=== PATIENT | female | born 1945 | race American Indian/Alaskan Native ===

== ENCOUNTER 2016-09-15 08:00 | Day surgery (SDC) | payer MEDICAID ==
[2016-09-13 06:48] VITALS: BMI 31.8
[2016-09-15 08:48] LABS: INR 1.06 (0.93-1.08); PARTIAL THROMBOPLASTIN TIME 28.4 Seconds (23.7-30.8)
[2016-09-15 08:50] LABS: ADD MANUAL DIFF? NO
[2016-09-15] MEDS ORDERED: Iohexol 350mgl/ml 50 ML ONE (09:01)
[2016-09-15] MEDS ORDERED: Iohexol 350 MG/100 ML VIAL ONE (09:01)
[2016-09-15] MEDS ORDERED: Lidocaine 2% Inj (20ml) ONE (09:01)
[2016-09-15 09:05] LABS: CALCIUM 9.8 mg/dL (8.4-10.5); POTASSIUM 4.3 mmol/L (3.6-5.0)
[2016-09-15 09:11] LABS: BASO # 0.02 K/mm3 (0.0-2.0); BASO % 0.3 % (0.0-3.0); EOS # 0.1 (0.0-0.7); EOS % 1.7 % (1.5-5.0); GRAN # 3.36 (1.4-6.5); GRAN % 51.2 % (50.0-68.0); HEMATOCRIT 37.1 % (36.0-48.0); LYMPH # 2.6 (1.2-3.4); LYMPH % 39.9 % (22.0-35.0); MEAN CELL VOLUME 93.2 fL (80.0-105.0); MEAN CORPUSCULAR HEMOGLOBIN 31.2 pg (25.0-35.0); MEAN CORPUSCULAR HGB CONC 33.4 g/dl (31.0-37.0); MEAN PLATELET VOLUME 9.7 fl (7.0-11.0); MONO # 0.5 (0.1-0.6); MONO % 6.9 % (1.0-6.0); PLATELET COUNT 226 10^3/uL (120.0-450.0); RED CELL DISTRIBUTION WIDTH 13.9 % (11.5-14.5); WHITE BLOOD COUNT 6.6 10^3/ul (4.5-11.0)
[2016-09-15] MEDS ORDERED: Midazolam 2 MG/2 ML VIAL ONE (09:50)
[2016-09-15] MEDS ORDERED: Sodium Chloride 0.45% 1,000 ML IV SCH (10:30)
[2016-09-15 10:50] VITALS: TEMP 97.8
[2016-09-15 11:52] VITALS: RESP 18
[2016-09-15 12:34] VITALS: BP 140/73; O2SAT 98
[2016-09-15 13:26] VITALS: PULSE 57
--- NOTE | 2016-09-19 13:48 | CARD ---
APPROVED REPORT Procedure(s) performed: Left Heart Catheterization Complete Heart Catheterization Left Ventriculogram HISTORY dyslipidemia . INDICATION The indication(s) include : positive stress test, stable angina (Silent [place](no time period)), chest pain. CASE TECHNIQUE The patient was brought electively to the Cardiac Catheterization Laboratory in a fasting state and was prepped and draped in a sterile manner. The was infiltrated with 2% Lidocaine subcutaneous without difficulty. Coronary angiography was performed using coronary diagnostic catheters. The left coronary system was accessed and visualized with a Diagnostic catheter. The right coronary system was accessed and visualized with a Diagnostic catheter. The left ventricle was accessed and visualized with a Diagnostic catheter. Left ventricular/Aortic Valve gradient assessed on pullback. Left ventriculogram was performed in SONG projection. Closure device was deployed with a 6 Fr Angio-Seal without any complications. Vessel Analysis The patient's coronary anatomy is right dominant. The left main coronary artery is a medium size vessel . There is a 70% stenosis in the distal segment. The left main bifurcates to the left anterior descending and circumflex. The left anterior descending artery is a medium size vessel . There is a 30% stenosis in the mid segment. The circumflex artery is a medium size vessel . There is a 20% stenosis in the mid segment. The right coronary artery is a medium size vessel . There is a 50% stenosis in the mid segment. Left Ventricle The left ventricle is normal in size with normal contractility. The left ventricular ejection fraction is estimated to be 60%. Conclusion Left main CAD. Normal left ventricular function. Recommendations Aggressive Medical Therapy Medical Therapy CABG evaluation.
== END 2016-09-15 14:50 | disposition home or self-care (01) ==
LOC: CATH 08:00
PROVIDERS: ATTEND Internal Medicine Cardiovascular Disease
DX: I25.118 Atherosclerotic heart disease of native coronary artery with other forms of angina pectoris (principal); I10 Essential (primary) hypertension; E78.5 Hyperlipidemia, unspecified
CPT/HCPCS: 36415; 80048; 80061; 85025; 85610; 85730; 86850; 86900; 93458; 99152; C1713; C1760; C1769; C1887 ×2; J1644; J2250; J3010; J7030; J7040; Q9967